=== PATIENT | male | born 1975 | race Caucasian/White ===

== ENCOUNTER 2019-10-13 19:19 | Emergency (ER) | payer MEDICAID, OTHER ==
[2019-10-13] MEDS ORDERED: Adacel (T-DAP) 0.5 ML SYRINGE ONE (19:36)
--- NOTE | 2019-10-13 20:01 | RAD ---
XR Finger(s) Rt Min 2 View History: Injury. Comparison: Hand radiograph 2013 Findings: There is debris on the film given the appearance of radiopaque punctate object, although th is is felt to be artifactual. No acute fracture. Tuft evaluation is limited on the AP radiograph. Impression: No acute fracture.
[2019-10-13] MEDS ORDERED: Bacitracin 1 PK ONE (20:33)
== END 2019-10-13 20:40 | disposition home or self-care (01) ==
LOC: NAV ERS 19:19
DX: S60.041A Contusion of right ring finger without damage to nail, initial encounter (principal); J45.909 Unspecified asthma, uncomplicated; F90.9 Attention-deficit hyperactivity disorder, unspecified type; F17.210 Nicotine dependence, cigarettes, uncomplicated; Z79.51 Long term (current) use of inhaled steroids; W22.8XXA Striking against or struck by other objects, initial encounter
CPT/HCPCS: 90471; 90715

== ENCOUNTER 2021-04-01 00:30 | Emergency (ER) | payer OTHER, MEDICAID ==
[2021-04-01] MEDS ORDERED: Naproxen 500 MG TAB ONE (00:57)
[2021-04-01] MEDS ORDERED: Clindamycin 150 MG CAP ONE (00:57)
== END 2021-04-01 01:05 | disposition home or self-care (01) ==
LOC: NAV ERS 00:30
DX: K05.00 Acute gingivitis, plaque induced (principal); K03.81 Cracked tooth; K02.9 Dental caries, unspecified; J45.909 Unspecified asthma, uncomplicated; F17.210 Nicotine dependence, cigarettes, uncomplicated
CPT/HCPCS: 99283

== ENCOUNTER 2022-03-14 14:36 | Emergency (ER) | payer MEDICAID, OTHER ==
[2022-03-14] MEDS ORDERED: Clindamycin 150 MG CAP ONE (15:08)
[2022-03-14] MEDS ORDERED: Ibuprofen 200 MG TAB ONE (15:08)
== END 2022-03-14 15:15 | disposition home or self-care (01) ==
LOC: NAV ERS 14:36
DX: K02.9 Dental caries, unspecified (principal); J45.909 Unspecified asthma, uncomplicated; F17.210 Nicotine dependence, cigarettes, uncomplicated; Z79.51 Long term (current) use of inhaled steroids
CPT/HCPCS: 99282

== ENCOUNTER 2023-01-11 18:35 | Emergency (ER) | payer OTHER ==
[2023-01-11] MEDS ORDERED: Ketorolac Tromethamine 60 MG/2 ML VIAL ONE (19:20)
== END 2023-01-11 21:51 | disposition home or self-care (01) ==
LOC: NAV ERS 18:35
DX: M47.892 Other spondylosis, cervical region (principal); J45.909 Unspecified asthma, uncomplicated; F17.210 Nicotine dependence, cigarettes, uncomplicated; X50.1XXA Overexertion from prolonged static or awkward postures, initial encounter; Z79.899 Other long term (current) drug therapy
CPT/HCPCS: 72125; 96372; J1885

== ENCOUNTER 2023-03-28 18:45 | Emergency (ER) | payer OTHER ==
[2023-03-28] MEDS ORDERED: predniSONE 20 MG TAB ONE (19:36)
[2023-03-28] MEDS ORDERED: Ipratropium/Albuterol 3 ML NEB ONE (19:36)
[2023-03-28] MEDS ORDERED: Doxycycline 100 MG CAP ONE (19:36)
== END 2023-03-28 20:45 | disposition home or self-care (01) ==
LOC: NAV ERS 18:45
DX: J44.1 Chronic obstructive pulmonary disease with (acute) exacerbation (principal); F17.210 Nicotine dependence, cigarettes, uncomplicated; Z79.899 Other long term (current) drug therapy; Z20.822 Contact with and (suspected) exposure to COVID-19
CPT/HCPCS: 71045; 87804; 94640; 94760; J7512; J7611; J7620; U0003; U0005

== ENCOUNTER 2023-11-17 18:54 | Emergency (ER) | payer OTHER ==
[2023-11-17] MEDS ORDERED: Ipratropium/Albuterol 3 ML NEB ONE (19:26)
[2023-11-17] MEDS ORDERED: Benzonatate 100 MG CAP ONE (19:50)
[2023-11-17] MEDS ORDERED: predniSONE 20 MG TAB ONE (20:13)
[2023-11-17] MEDS ORDERED: Azithromycin 250 MG TAB ONE (20:13)
== END 2023-11-17 20:18 | disposition home or self-care (01) ==
LOC: NAV ERS 18:54
DX: J44.1 Chronic obstructive pulmonary disease with (acute) exacerbation (principal); I10 Essential (primary) hypertension; F17.210 Nicotine dependence, cigarettes, uncomplicated
CPT/HCPCS: 71046; 87635; 87804; 93005; 94640; J7512; J7620

== ENCOUNTER 2023-12-27 22:34 | Emergency (ER) | payer OTHER ==
[2023-12-27] MEDS ORDERED: Ibuprofen 800 MG TAB ONE (23:22)
== END 2023-12-27 23:44 | disposition home or self-care (01) ==
LOC: NAV ERS 22:34
DX: M25.562 Pain in left knee (principal); J45.909 Unspecified asthma, uncomplicated; F17.210 Nicotine dependence, cigarettes, uncomplicated; W50.1XXA Accidental kick by another person, initial encounter; Z79.899 Other long term (current) drug therapy

== ENCOUNTER 2025-01-13 12:41 | Emergency (ER) | payer OTHER ==
[2025-01-13] MEDS ORDERED: Dexamethasone 4 MG TAB ONE (12:55)
[2025-01-13] MEDS ORDERED: Albuterol 2.5 MG (3 mL) NEB ONE (12:55)
[2025-01-13] MEDS ORDERED: Ipratropium/Albuterol 3 ML NEB ONE (12:57)
== END 2025-01-13 13:19 | disposition home or self-care (01) ==
LOC: NAV ERS 12:41
DX: J44.1 Chronic obstructive pulmonary disease with (acute) exacerbation (principal); F17.210 Nicotine dependence, cigarettes, uncomplicated; Z55.6 Problems related to health literacy; Z79.899 Other long term (current) drug therapy
CPT/HCPCS: J7611; J7620; J8540

== ENCOUNTER 2025-10-09 10:45 | Emergency (ER) | payer OTHER, SELFPAY ==
[~2025-10-09 10:45] MED LIST: Iopamidol 300 61% 100 ML VIAL FS ONE
[2025-10-09] MEDS ORDERED: Ibuprofen 800 MG TAB ONE (10:59)
[2025-10-09 11:26] LABS: #Basophils 0.3 thou/uL (0.0-0.2); #Eosinophils 0.1 thou/uL (0.0-0.7); #Lymphocytes 0.6 thou/uL (1.20-3.40); #Monocytes 1.3 thou/uL (0.11-0.59); #Neutrophils 9.6 thou/uL (1.40-6.50); %Basophils 2.6 % (0.0-1.0); %Eosinophils 0.8 % (0.0-10.0); %Lymphocytes 4.7 % (21.0-51.0); %Monocytes 11.0 % (0.0-10.0); %Neutrophils 80.8 % (42.0-75.0); Hematocrit 47.6 % (42.0-52.0); Hemoglobin 15.9 g/dL (14.0-18.0); Mean Corpuscular Hemoglobin 29.8 pg (27.0-31.0); Mean Corpuscular Volume 89.2 fl (78.0-98.0); Platelet Count 290 10x3/uL (130-400); Red Blood Cell (RBC) Count 5.34 mill/uL (4.70-6.10); White Blood Cell (WBC) Count 11.9 10x3/uL (4.8-10.8)
[2025-10-09 11:36] LABS: ALT (SGPT) 31 U/L (Less than 45); AST (SGOT) 33 U/L (11-34); Albumin 4.0 g/dL (3.1-4.5); Alkaline Phosphatase 77 U/L (40-110); Anion Gap 16 mmol/L (10-20); BUN (Urea Nitrogen) 12 mg/dL (8.9-20.6); Bilirubin, Total 0.5 mg/dL (0.3-1.2); Calc. Creatinine Clearance 0 mL/min (70-130); Calcium 9.0 mg/dL (7.8-10.44); Carbon Dioxide 19 mmol/L (22-29); Chloride 108 mmol/L (98-107); Globulin 3.2 g/dL (2.4-3.5); Glucose 129 mg/dL (70-105); Potassium 4.1 mmol/L (3.5-5.1); Sodium 139 mmol/L (136-145)
[2025-10-09] MEDS ORDERED: Acetaminophen 500 MG TAB ONE (11:56)
[2025-10-09] MEDS ORDERED: cefTRIAXone (ROCEPHIN) 2 GM VIAL ONE (11:57)
[2025-10-09] MEDS ORDERED: Oseltamivir 75 MG CAP ONE (12:41)
[2025-10-09] MEDS ORDERED: Ondansetron PF 4 MG/2 ML Vial ONE (13:13)
[2025-10-09] MEDS ORDERED: Dexamethasone 10 MG/ML VIAL ONE (13:53)
== END 2025-10-09 14:39 | disposition home or self-care (01) ==
LOC: NAV ERS 10:45
DX: J11.1 Influenza due to unidentified influenza virus with other respiratory manifestations (principal); F17.210 Nicotine dependence, cigarettes, uncomplicated
CPT/HCPCS: 71046; 71275; 80053; 83605; 83880; 85025; 85379; 87040; 87149; 87428; 93005; 96374; 96375; J0696; J1100; J2405; J7030; Q9967